=== PATIENT | female | born 1950 | race Caucasian/White ===

== ENCOUNTER 2020-05-12 10:45 | Emergency (ER) | payer MEDICARE ==
--- NOTE | 2020-05-12 11:13 | ED ---
Altered Mental Status HPI - General Chief Complaint: Altered Mental Status Stated Complaint: Altered Time Seen by Provider: 05/12/20 10:55 Source: patient, RN notes reviewed Mode of arrival: EMS Limitations: no limitations, physical limitation - History of Present Illness Initial Comments: This is a 69-year-old female presents emergency Department with chief complaint of episodes of confusion. Patient reportedly has been having these episodes confusion combativeness at nighttime. Staff reports that she does not want to wear her CPAP. Patient has no complaints at this time. Patient does state that this seems started after she had COVID she's had severe anxiety she states she is aware of what is going on, she has no outs were she does not remember or is confused about She denies chest pain shortness breath abdominal pain, headache, dizziness, blurred vision she does state that does not ambulate Patient states that she had covid vaccine in which she had some localized reaction. Patient denies any suicidal homicidal. Denies any other complaints. - Related Data Home Medications Medication Instructions Recorded Confirmed Acetaminophen Tab [Tylenol] 650 mg PO Q6H PRN 05/12/20 05/12/20 Apixaban [Eliquis] 5 mg PO BID@0900,2100 05/12/20 05/12/20 Aspirin 81 mg PO DAILY@0900 05/12/20 05/12/20 Budesonide [Pulmicort] 1 mg INHALATION RT-BID@0900,209905/12/20 05/12/20 Calcium Carbonate [Tums] 1,000 mg PO Q3H PRN 05/12/20 05/12/20 Clotrimazole/Betamethasone Dip 1 applic TOPICAL Q12H 05/12/20 05/12/20 [Lotrisone Cream] Doxycycline Hyclate 100 mg PO BID@0900,2100 05/12/20 05/12/20 Ergocalciferol [Vitamin D2] 50,000 unit PO MO 05/12/20 05/12/20 Escitalopram [Lexapro] 10 mg PO DAILY@0900 05/12/20 05/12/20 Furosemide [Lasix] 20 mg PO BID@0600,1200 05/12/20 05/12/20 Furosemide [Lasix] 40 mg PO BID@0600,1200 05/12/20 05/12/20 Ipratropium-Albuterol Nebulize 3 ml INHALATION RT-Q8H PRN 05/12/20 05/12/20 [Duoneb 0.5 mg-3 mg/3 ml Soln] Latanoprost [Xalatan 0.005%] 1 drop BOTH EYES HS@209905/12/20 05/12/20 Magnesium Hydroxide [Milk of 2,400 mg PO DAILY PRN 05/12/20 05/12/20 Magnesia] Melatonin 5 mg PO HS@209905/12/20 05/12/20 Metoprolol Tartrate [Lopressor] 12.5 mg PO BID@0900,209905/12/20 05/12/20 Midodrine HCl [ProAmatine] 10 mg PO TID@0900,1299,209905/12/20 05/12/20 Polyethylene Glycol 3350 [Miralax] 17 gm PO DAILY@0900 05/12/20 05/12/20 Potassium Chloride ER [K-Dur 10] 10 meq PO BID@0900,209905/12/20 05/12/20 Refresh Gel 2 drop BOTH EYES DAILY PRN 05/12/20 05/12/20 Sennosides/Docusate Sodium [Senna 1 tab PO BID@0900,209905/12/20 05/12/20 Plus 8.6-50 mg Tablet] Spironolactone 50 mg PO DAILY@0905/12/20 05/12/20 Triamcinolone 0.1% Cream [Kenalog 1 applicatio TOPICAL Q8H 05/12/20 05/12/20 0.1% Cream] busPIRone HCl [Buspar] 10 mg PO BID@0900,199905/12/20 05/12/20 ursodioL [Ursodiol] 300 mg PO BID@0900,209905/12/20 05/12/20 Allergies Allergy/AdvReac Type Severity Reaction Status Date / Time No Known Allergies Allergy Verified 05/12/20 12:18 Review of Systems ROS Statement: Those systems with pertinent positive or pertinent negative responses have been documented in the HPI. ROS Other: All systems not noted in ROS Statement are negative. Past Medical History Past Medical History: Atrial Fibrillation, Heart Failure, Myocardial Infarction ([place]) Additional Past Medical History / Comment(s): obesity History of Any Multi-Drug Resistant Organisms: None Reported Past Surgical History: Tonsillectomy Past Psychological History: Anxiety, Depression Smoking Status: Former smoker Past Alcohol Use History: None Reported Past Drug Use History: None Reported General Exam Limitations: no limitations, physical limitation General appearance: alert, in no apparent distress, obese Head exam: Present: atraumatic, normocephalic, normal inspection Eye exam: Present: normal appearance, PERRL, EOMI. Absent: scleral icterus, conjunctival injection, periorbital swelling ENT exam: Present: normal exam, normal oropharynx, mucous membranes moist Neck exam: Present: normal inspection. Absent: tenderness, meningismus, lymphadenopathy Respiratory exam: Present: normal lung sounds bilaterally. Absent: respiratory distress, wheezes, rales, rhonchi, stridor Cardiovascular Exam: Present: regular rate, normal rhythm, normal heart sounds. Absent: systolic murmur, diastolic murmur, rubs, gallop, clicks GI/Abdominal exam: Present: soft, normal bowel sounds. Absent: distended, tenderness, guarding, rebound, rigid Neurological exam: Present: alert, oriented X3, CN II-XII intact, reflexes normal. Absent: motor sensory deficit Psychiatric exam: Present: normal affect, normal mood Skin exam: Present: other (Localized erythema was outlined in the left shoulder) Course Vital Signs 05/12/20 05/12/20 10:49 12:12 Temperature 97.9 F Pulse Rate 73 84 Respiratory 26 H 25 H Rate Blood Pressure 96/81 127/71 O2 Sat by Pulse 100 96 Oximetry Medical Decision Making - Medical Decision Making 69-year-old presented from alf for evaluation of intermittent confusi on. Patient is at her normal baseline she has no confusion she is aware these episodes which is mostly related to anxiety. Patient may have some hypercarbia she at nighttime secondary to not wearing her seatbelt. Patient's will be discharged in stable condition back to alf. - Lab Data Result diagrams: 05/12/20 11:13 05/12/20 11:13 Lab Results 05/12/20 05/12/20 05/12/20 Range/Units 11:13 11:13 11:13 WBC 10.8 H (3.8-10.6) k/uL RBC 4.09 (3.80-5.40) m/uL Hgb 12.2 (11.4-16.0) gm/dL Hct 37.1 (34.0-46.0) % MCV 90.8 (80.0-100.0) fL MCH 29.7 (25.0-35.0) pg MCHC 32.7 (31.0-37.0) g/dL RDW 14.2 (11.5-15.5) % Plt Count 240 (150-450) k/uL MPV 6.8 Neutrophils % 80 % Lymphocytes % 7 % Monocytes % 7 % Eosinophils % 4 % Basophils % 1 % Neutrophils # 8.6 H (1.3-7.7) k/uL Lymphocytes # 0.8 L (1.0-4.8) k/uL Monocytes # 0.7 (0-1.0) k/uL Eosinophils # 0.5 (0-0.7) k/uL Basophils # 0.1 (0-0.2) k/uL PT 10.9 (9.0-12.0) sec INR 1.1 (<1.2) APTT 26.3 (22.0-30.0) sec Sodium 135 L (137-145) mmol/L Potassium 4.4 (3.5-5.1) mmol/L Chloride 97 L (98-107) mmol/L Carbon Dioxide 35 H (22-30) mmol/L Anion Gap 3 mmol/L BUN 27 H (7-17) mg/dL Creatinine 0.67 (0.52-1.04) mg/dL Est GFR (CKD-EPI)AfAm >90 (>60 ml/min/1.73 sqM) Est GFR (CKD-EPI)NonAf >90 (>60 ml/min/1.73 sqM) Glucose 130 H (74-99) mg/dL Plasma Lactic Acid Christopher (0.7-2.0) mmol/L Calcium 8.3 L (8.4-10.2) mg/dL Total Bilirubin 0.7 (0.2-1.3) mg/dL AST 25 (14-36) U/L ALT 14 (4-34) U/L Alkaline Phosphatase 81 (38-126) U/L Troponin I (0.000-0.034) ng/mL NT-Pro-B Natriuret Pep pg/mL Total Protein 6.5 (6.3-8.2) g/dL Albumin 3.2 L (3.5-5.0) g/dL Urine Color Urine Appearance (Clear) Urine pH (5.0-8.0) Ur Specific [place] (1.001-1.035) Urine Protein (Negative) Urine Glucose (UA) (Negative) Urine Ketones (Negative) Urine Blood (Negative) Urine Nitrite (Negative) Urine Bilirubin (Negative) Urine Urobilinogen (<2.0) mg/dL Ur Leukocyte Esterase (Negative) 05/12/20 05/12/20 05/12/20 Range/Units 11:13 11:13 11:13 WBC (3.8-10.6) k/uL RBC (3.80-5.40) m/uL Hgb (11.4-16.0) gm/dL Hct (34.0-46.0) % MCV (80.0-100.0) fL MCH (25.0-35.0) pg MCHC (31.0-37.0) g/dL RDW (11.5-15.5) % Plt Count (150-450) k/uL MPV Neutrophils % % Lymphocytes % % Monocytes % % Eosinophils % % Basophils % % Neutrophils # (1.3-7.7) k/uL Lymphocytes # (1.0-4.8) k/uL Monocytes # (0-1.0) k/uL Eosinophils # (0-0.7) k/uL Basophils # (0-0.2) k/uL PT (9.0-12.0) sec INR (<1.2) APTT (22.0-30.0) sec Sodium (137-145) mmol/L Potassium (3.5-5.1) mmol/L Chloride (98-107) mmol/L Carbon Dioxide (22-30) mmol/L Anion Gap mmol/L BUN (7-17) mg/dL Creatinine (0.52-1.04) mg/dL Est GFR (CKD-EPI)AfAm (>60 ml/min/1.73 sqM) Est GFR (CKD-EPI)NonAf (>60 ml/min/1.73 sqM) Glucose (74-99) mg/dL Plasma Lactic Acid Christopher 1.2 (0.7-2.0) mmol/L Calcium (8.4-10.2) mg/dL Total Bilirubin (0.2-1.3) mg/dL AST (14-36) U/L ALT (4-34) U/L Alkaline Phosphatase (38-126) U/L Troponin I <0.012 (0.000-0.034) ng/mL NT-Pro-B Natriuret Pep 1300 pg/mL Total Protein (6.3-8.2) g/dL Albumin (3.5-5.0) g/dL Urine Color Urine Appearance (Clear) Urine pH (5.0-8.0) Ur Specific [place] (1.001-1.035) Urine Protein (Negative) Urine Glucose (UA) (Negative) Urine Ketones (Negative) Urine Blood (Negative) Urine Nitrite (Negative) Urine Bilirubin (Negative) Urine Urobilinogen (<2.0) mg/dL Ur Leukocyte Esterase (Negative) 05/12/20 Range/Units 12:27 WBC (3.8-10.6) k/uL RBC (3.80-5.40) m/uL Hgb (11.4-16.0) gm/dL Hct (34.0-46.0) % MCV (80.0-100.0) fL MCH (25.0-35.0) pg MCHC (31.0-37.0) g/dL RDW (11.5-15.5) % Plt Count (150-450) k/uL MPV Neutrophils % % Lymphocytes % % Monocytes % % Eosinophils % % Basophils % % Neutrophils # (1.3-7.7) k/uL Lymphocytes # (1.0-4.8) k/uL Monocytes # (0-1.0) k/uL Eosinophils # (0-0.7) k/uL Basophils # (0-0.2) k/uL PT (9.0-12.0) sec INR (<1.2) APTT (22.0-30.0) sec Sodium (137-145) mmol/L Potassium (3.5-5.1) mmol/L Chloride (98-107) mmol/L Carbon Dioxide (22-30) mmol/L Anion Gap mmol/L BUN (7-17) mg/dL Creatinine (0.52-1.04) mg/dL Est GFR (CKD-EPI)AfAm (>60 ml/min/1.73 sqM) Est GFR (CKD-EPI)NonAf (>60 ml/min/1.73 sqM) Glucose (74-99) mg/dL Plasma Lactic Acid Christopher (0.7-2.0) mmol/L Calcium (8.4-10.2) mg/dL Total Bilirubin (0.2-1.3) mg/dL AST (14-36) U/L ALT (4-34) U/L Alkaline Phosphatase (38-126) U/L Troponin I (0.000-0.034) ng/mL NT-Pro-B Natriuret Pep pg/mL Total Protein (6.3-8.2) g/dL Albumin (3.5-5.0) g/dL Urine Color Yellow Urine Appearance Clear (Clear) Urine pH 6.5 (5.0-8.0) Ur Specific [place] 1.016 (1.001-1.035) Urine Protein Negative (Negative) Urine Glucose (UA) Negative (Negative) Urine Ketones Negative (Negative) Urine Blood Negative (Negative) Urine Nitrite Negative (Negative) Urine Bilirubin Negative (Negative) Urine Urobilinogen 2.0 (<2.0) mg/dL Ur Leukocyte Esterase Negative (Negative) - EKG Data -: EKG Interpreted by Me EKG Comments: EKG performed at 10:51 A. fib rate of 79 VT 96 QT /QTC 402/460 Disposition Clinical Impression: Anxiety, Intermittent confusion Disposition: HOME SELF-CARE Condition: Stable Instructions (If sedation given, give patient instructions): Generalized Anxiety Disorder (ED) Additional Instructions: Please return to the Emergency Department if symptoms worsen or any other concerns. Is patient prescribed a controlled substance at d/c from ED?: No Referrals: Avelina Diego MD [Primary Care Provider] - 1-2 days Time of Disposition: 13:10
[2020-05-12 11:24] LABS: Basophils # (A) 0.1 k/uL (0-0.2); Basophils % (A) 1 %; Eosinophils # (A) 0.5 k/uL (0-0.7); Eosinophils % (A) 4 %; HCT 37.1 % (34.0-46.0); HGB 12.2 gm/dL (11.4-16.0); Lymphocytes # (A) 0.8 k/uL (1.0-4.8); Lymphocytes % (A) 7 %; MCH 29.7 pg (25.0-35.0); MCHC 32.7 g/dL (31.0-37.0); MCV 90.8 fL (80.0-100.0); Mean Platelet Volume 6.8; Monocytes # (A) 0.7 k/uL (0-1.0); Monocytes % (A) 7 %; Neutrophils # (A) 8.6 k/uL (1.3-7.7); Neutrophils % (A) 80 %; Platelet Count 240 k/uL (150-450); RBC 4.09 m/uL (3.80-5.40); RDW 14.2 % (11.5-15.5); WBC 10.8 k/uL (3.8-10.6)
[2020-05-12 11:34] LABS: ALT 14 U/L (4-34); AST 25 U/L (14-36); African American GFR (CKD) >90 (>60 ml/min/1.73 sqM); Albumin 3.2 g/dL (3.5-5.0); Alkaline Phosphatase 81 U/L (38-126); Anion Gap 3 mmol/L; Blood Urea Nitrogen 27 mg/dL (7-17); Calcium 8.3 mg/dL (8.4-10.2); Carbon Dioxide 35 mmol/L (22-30); Chloride 97 mmol/L (98-107); Glucose 130 mg/dL (74-99); Non-African American GFR(CKD) >90 (>60 ml/min/1.73 sqM); Potassium 4.4 mmol/L (3.5-5.1); Sodium 135 mmol/L (137-145); Total Bilirubin 0.7 mg/dL (0.2-1.3); Total Protein 6.5 g/dL (6.3-8.2)
[2020-05-12 11:42] LABS: INR 1.1 (<1.2); Partial Thromboplastin Time 26.3 sec (22.0-30.0); Prothrombin Time 10.9 sec (9.0-12.0)
--- NOTE | 2020-05-12 11:44 | XR ---
EXAMINATION TYPE: XR chest 1V portable DATE OF EXAM: 05/12/2020 COMPARISON: NONE HISTORY: Anxiety and weakness. TECHNIQUE: Single portable frontal semiupright view of the chest is obtained. FINDINGS: Suboptimal due to patient's large body habitus. There is cardiomegaly with central vascular congestion felt present. No large pleural effusion or pneumothorax seen. The osseous structures are intact. IMPRESSION: Suboptimal study. Correlate for CHF exacerbation as there is cardiomegaly with suspected mild to moderate central vascular congestion.
[2020-05-12 12:12] VITALS: BP 127/71
[2020-05-12 12:54] LABS: Appearance,Urine Clear (Clear); Bilirubin,Urine Negative (Negative); Blood,Urine Negative (Negative); Color,Urine Yellow; Glucose,Urine (UA) Negative (Negative); Ketones,Urine Negative (Negative); Leukocyte Esterase,Urine Negative (Negative); Nitrite,Urine Negative (Negative); PH, Urine 6.5 (5.0-8.0); Protein,Urine Negative (Negative); Specific Gravity,Urine 1.016 (1.001-1.035)
[2020-05-12] MEDS ORDERED: SODIUM CHLORIDE 0.9% 2,000 ML IV ONE (13:02)
[2020-05-12 13:36] VITALS: PULSE 81; RESP 20; TEMP 98
== END 2020-05-12 13:36 | disposition home or self-care (01) ==
LOC: EC 10:45
DX: F41.9 Anxiety disorder, unspecified (principal); R41.0 Disorientation, unspecified; I50.9 Heart failure, unspecified; F32.9 Major depressive disorder, single episode, unspecified; I25.2 Old myocardial infarction; Z79.01 Long term (current) use of anticoagulants; Z79.899 Other long term (current) drug therapy; Z79.82 Long term (current) use of aspirin; Z79.51 Long term (current) use of inhaled steroids; Z79.890 Hormone replacement therapy; Z87.891 Personal history of nicotine dependence
CPT/HCPCS: 36415; 71045; 80053; 81003; 83605; 83880; 84484; 85025; 85610; 85730; 93005; 99285

== ENCOUNTER 2020-09-02 04:05 | Emergency (ER) | payer MEDICARE ==
[2020-09-02 04:24] VITALS: PULSE 84; RESP 18; TEMP 97.2
--- NOTE | 2020-09-02 04:28 | ED ---
Fall HPI - General Chief Complaint: Fall Stated Complaint: Fall Time Seen by Provider: 09/02/20 04:20 Source: patient, EMS, RN notes reviewed, old records reviewed Mode of arrival: EMS Limitations: no limitations - History of Present Illness Initial Comments: This is a 69-year-old female DF for evaluation patient Dese for this regarding fall. Patient of fall during transport at living facility today. Complaining of hip pain back pain. Otherwise no complaints. Patient presents today for evaluation of injury from fall MD Complaint: fall -: hour(s) Fall From: out of bed When Fall Occurred: 1-3 hours [employer] Fall Witnessed: yes, by living facility staff Place Fall Occurred: assisted/SNF Loss of Consciousness: none Prolonged Down Time?: no Symptoms Prior to Fall: none Location: buttocks Severity: mild Context: history of frequent falls Associated Symptoms: denies - Related Data Home Medications Medication Instructions Recorded Confirmed Acetaminophen Tab [Tylenol] 650 mg PO Q6H PRN 05/12/20 05/12/20 Apixaban [Eliquis] 5 mg PO BID@0900,209905/12/20 05/12/20 Aspirin 81 mg PO DAILY@0900 05/12/20 05/12/20 Budesonide [Pulmicort] 1 mg INHALATION RT-BID@0900,209905/12/20 05/12/20 Calcium Carbonate [Tums] 1,000 mg PO Q3H PRN 05/12/20 05/12/20 Clotrimazole/Betamethasone Dip 1 applic TOPICAL Q12H 05/12/20 05/12/20 [Lotrisone Cream] Doxycycline Hyclate 100 mg PO BID@0900,209905/12/20 05/12/20 Ergocalciferol [Vitamin D2] 50,000 unit PO MO 05/12/20 05/12/20 Escitalopram [Lexapro] 10 mg PO DAILY@0900 05/12/20 05/12/20 Furosemide [Lasix] 20 mg PO BID@0600,1200 05/12/20 05/12/20 Furosemide [Lasix] 40 mg PO BID@0600,1200 05/12/20 05/12/20 Ipratropium-Albuterol Nebulize 3 ml INHALATION RT-Q8H PRN 05/12/20 05/12/20 [Duoneb 0.5 mg-3 mg/3 ml Soln] Latanoprost [Xalatan 0.005%] 1 drop BOTH EYES HS@209905/12/20 05/12/20 Magnesium Hydroxide [Milk of 2,400 mg PO DAILY PRN 05/12/20 05/12/20 Magnesia] Melatonin 5 mg PO HS@209905/12/20 05/12/20 Metoprolol Tartrate [Lopressor] 12.5 mg PO BID@0900,209905/12/20 05/12/20 Midodrine HCl [ProAmatine] 10 mg PO TID@0900,1300,209905/12/20 05/12/20 Polyethylene Glycol 3350 [Miralax] 17 gm PO DAILY@0900 05/12/20 05/12/20 Potassium Chloride ER [K-Dur 10] 10 meq PO BID@0900,209905/12/20 05/12/20 Refresh Gel 2 drop BOTH EYES DAILY PRN 05/12/20 05/12/20 Sennosides/Docusate Sodium [Senna 1 tab PO BID@0900,209905/12/20 05/12/20 Plus 8.6-50 mg Tablet] Spironolactone 50 mg PO DAILY@0900 05/12/20 05/12/20 Triamcinolone 0.1% Cream [Kenalog 1 applicatio TOPICAL Q8H 05/12/20 05/12/20 0.1% Cream] busPIRone HCl [Buspar] 10 mg PO BID@0900,199905/12/20 05/12/20 ursodioL [Ursodiol] 300 mg PO BID@0900,209905/12/20 05/12/20 Allergies Allergy/AdvReac Type Severity Reaction Status Date / Time No Known Allergies Allergy Verified 09/02/20 04:23 Review of Systems ROS Statement: Those systems with pertinent positive or pertinent negative responses have been documented in the HPI. ROS Other: All systems not noted in ROS Statement are negative. Past Medical History Past Medical History: Atrial Fibrillation, Heart Failure, Myocardial Infarction ([place]) Additional Past Medical History / Comment(s): obesity History of Any Multi-Drug Resistant Organisms: None Reported Past Surgical History: Tonsillectomy Past Psychological History: Anxiety, Depression Smoking Status: Former smoker Past Alcohol Use History: None Reported Past Drug Use History: None Reported General Exam Limitations: no limitations General appearance: alert, in no apparent distress, obese Head exam: Present: atraumatic, normocephalic, normal inspection Eye exam: Present: normal appearance, PERRL, EOMI. Absent: scleral icterus, conjunctival injection, periorbital swelling ENT exam: Present: normal exam, mucous membranes moist Neck exam: Present: normal inspection. Absent: tenderness, meningismus, lymphadenopathy Respiratory exam: Present: normal lung sounds bilaterally. Absent: respiratory distress, wheezes, rales, rhonchi, stridor Cardiovascular Exam: Present: regular rate, normal rhythm, normal heart sounds. Absent: systolic murmur, diastolic murmur, rubs, gallop, clicks GI/Abdominal exam: Present: soft, normal bowel sounds. Absent: distended, tenderness, guarding, rebound, rigid Extremities exam: Present: normal inspection, full ROM, normal capillary refill. Absent: tenderness, pedal edema, joint swelling, calf tenderness Back exam: Present: normal inspection Neurological exam: Present: alert, oriented X3, CN II-XII intact Psychiatric exam: Present: normal affect, normal mood Skin exam: Present: warm, dry, intact, normal color. Absent: rash Course Vital Signs 09/02/20 09/02/20 04:17 06:11 Temperature 97.2 F L Pulse Rate 84 84 Respiratory 18 18 Rate Blood Pressure 91/67 111/71 O2 Sat by Pulse 94 L 94 L Oximetry - Reevaluation(s) Reevaluation #1: Medical record is reviewed Symptoms improved here in the ER Patient informed of results and questions answered Medical Decision Making - Medical Decision Making 69 female fall. Fall during transport. X-ray negative and patient can be discharged home - Radiology Data Radiology results: report reviewed (X-ray hip negative for traumatic injury), image reviewed Disposition Clinical Impression: Fall Disposition: HOME SELF-CARE Condition: Fair Instructions (If sedation given, give patient instructions): Fall Prevention f or Older Adults (ED) Is patient prescribed a controlled substance at d/c from ED?: No Referrals: Avelina Diego MD [Primary Care Provider] - 1-2 days
--- NOTE | 2020-09-02 05:20 | XR ---
EXAM: XR Pelvis Complete, 3 or More Views CLINICAL HISTORY: ITS.REASON XR Reason: fall TECHNIQUE: Frontal and lateral or oblique views of the pelvis. COMPARISON: No relevant prior studies available. FINDINGS: Bones/joints: No acute fracture. No dislocation. Mild degenerative changes. Soft tissues: Unremarkable. IMPRESSION: No acute findings.
[2020-09-02 06:13] VITALS: BP 111/71
== END 2020-09-02 07:30 | disposition home or self-care (01) ==
LOC: EC 04:05
DX: Z04.3 Encounter for examination and observation following other accident (principal); I48.91 Unspecified atrial fibrillation; I50.9 Heart failure, unspecified; I21.9 Acute myocardial infarction, unspecified; Z87.891 Personal history of nicotine dependence; F41.9 Anxiety disorder, unspecified; F32.9 Major depressive disorder, single episode, unspecified
CPT/HCPCS: 73502; 99284